=== PATIENT | male | born 1980 | race Caucasian/White ===

== ENCOUNTER 2017-02-12 14:15 | Inpatient (IN) | payer BC, OTHER ==
[~2017-02-12] VITALS: Ht 175.3 cm; Wt 61.9 kg
--- NOTE | ~2017-02-12 | CATHLAB ---
[facility] [address] [place] [address] INVASIVE PROCEDURE REPORT Name: MAGGIE BARRETO Room #: 206-P ADM IN M.R.#: [id number] Admission: 02/12/17 Attend Phys: Roger King Discharge: Date of : 80 Date of Service: 02/15/17 1231 Report #: [id number] THIS REPORT FOR: //name// APPROVED REPORT Patient Details Patient Status: In-Patient Room #: The patient is a 36 year-old male Event Personnel Pawan Carrillo Kelp Gatherer, Sydni Wilson, Fermín Canada RN, Ernesto Rojas RN RN, Matteo Bailey Scrub Procedures Performed Art Access - R femoral artery* Lauri Access - R femoral vein 24031 Initial Mod Sed Same Phys/QHP Gr5y [id number] 53530 Mod Sed Same Phys/QHP Ea [id number] Right and Left Heart Cath w/or w/o Coronarie [id number] RLHC Renal Bilateral Peripheral Angiography [id number] CVRENALBIL Hemostasis with Manual pressure Indication CHF Current Status: Yes , Cardiomyopathy Risk Factors Hypercholesterolemia, Hypertension, History of renal insufficiency, with long-standing hypertension. Procedure Narrative The patient was brought urgently to the Cardiac Catheterization Laboratory and was prepped and draped in a sterile manner. The Right Groin^ was infiltrated with 1% Lidocaine subcutaneous anesthesia. A Right Heart Catheterization was performed with a 6 Fr. [place]-Faiza catheter and pressure were recorded. Cardiac outputs were obtained by the Monica method. A PINNACLE 4FR Sheath #[id number] sheath was inserted into the RFA^. Coronary angiography was performed using coronary diagnostic catheters. The right coronary system was accessed and visualized with a JR 4 catheter. The left coronary system was accessed and visualized with a JL 4 catheter. The left ventricle was accessed and visualized with a JR 4 catheter. Left ventricular/Aortic Valve gradient assessed via catheter pullback. Hemostasis was obtained with manual pressure following sheath removal without any complications. The patient tolerated the procedure well and there were no complications associated with the procedure. There was no hematoma. Bilateral selective renal angiography performed using a 4 [facility] [place] [address] INVASIVE PROCEDURE REPORT Name: MAGGIE BARRETO Room #: 206-P [facility] IN ..#: [id number] Admission: 02/12/17 Attend Phys: Roger King Discharge: Date of : 80 Date of Service: 02/15/17 1231 Report #: [id number] David JR4 guide catheter. Indications include long-standing history of hypertension, renal insufficiency and cardiomyopathy. Selective angiography reveals no evidence for renal artery stenosis in either the right or left renal arteries. Intraoperative Conscious Sedation Sedation start time: 11:06 Case end Time: 11:42 Fentanyl 25.0 mcg Versed 1.0 mg Fluoro Time: 15.16 minutes Dose: DAP 5238.40 cGycm2 312 mGy Contrast Type and Amount: Visipaque 50 ml Coronary Angiography The patient's coronary anatomy is right dominant. Diagnostic Cath Left Main Patent vessel, no flow limiting lesions. LAD Patent vessel, mild plaquing in the proximal segment, less than 20%. Diagonal 1 Patent vessel, with no flow-limiting lesions. Circumflex Patent vessel, with no flow-limiting lesions. OM1 Patent vessel, with no flow-limiting lesions. OM2 Patent vessel, with no flow-limiting lesions. Right Coronary Dominant vessel, with no flow-limiting lesions. R PDA Patent vessel, with no flow-limiting lesions. RPLV Patent vessel, with no flow-limiting lesions. Left Ventriculography Left Ventriculography was not performed. Ejection Fraction was 15% based off patient's Echocardiogram. The LVEDP was measured, there is no gradient across the outflow tract. Hemodynamics The right atrial mean pressure is 15 mmHg. The right ventricular pressure is 51/13 mmHg. The pulmonary artery pressure is 52/31 mmHg with a mean of 40 mmHg. The aortic pressure is 139/111 mmHg with a mean of 124 mmHg. The left ventricular pressure is 140/23 mmHg with a mean of mmHg. The left ventricular end diastolic pressure is 35 mmHg. PaO2 saturation is 48.20 %. Arterial saturation is 95.70 %. The cardiac output using the Monica method is 2.51 L/min. The cardiac index using the Monica method is 1.39 L/min/m2. Conclusion [facility] [address] [place] [address] INVASIVE PROCEDURE REPORT Name: MAGGIE BARRETO Room #: 206-P ADM IN M.R.#: [id number] Admission: 02/12/17 Attend Phys: Roger King Discharge: Date of : 80 Date of Service: 02/15/17 1231 Report #: [id number] 1. Severe, nonischemic cardiomyopathy. 2. Mild plaquing in proximal LAD. 3. Right heart catheterization performed, chamber pressures and cardiac output measured. 4. No evidence for renal artery stenosis. 5. Medical therapy recommended. <ELECTRONICALLY SIGNED> By: Pawan Carrillo MD 02/15/171230 30 30 Pawan Carrillo MD /INF
--- NOTE | ~2017-02-12 | HC ---
[facility] [place] [address] CONSULTATION Name: MAGGIE BARRETO Room #: 206-P [facility] IN M.R.#: [id number] Admission: 02/12/17 Attend Phys: Roger Winkler Discharge: Date of : 80 Report #: [id number] THIS REPORT FOR: //name// CC: FAM unknown Roger Winkler DATE OF SERVICE: 02/13/2017 INDICATION: Shortness of air. HISTORY OF PRESENT ILLNESS: This is a 36-year-old gentleman with a longstanding history of hypertension, ADHD, presenting with shortness of breath for the past several weeks. The patient has a longstanding history of hypertension, on multiple medications. He sees his primary care physician every month for his Adderall prescription. About 3 weeks ago, he developed sinusitis and was treated with antibiotics. However, he still has fevers and then developed shortness of breath. He had progressive shortness of breath with exertion. He also developed orthopnea and palpitations in a supine position. There is no history of nausea, diarrhea or lightheadedness. He was admitted to [facility], the echo reportedly reveals EF in the 10% range. He was subsequently transferred to [facility] for further evaluation. ALLERGIES: Include furosemide. MEDICATIONS: At home include Adderall daily; clonazepam; clonidine half a tablet twice a day; Tribenzor which includes amlodipine 10 mg, hydrochlorothiazide 25 mg and Benicar 40 mg daily. SOCIAL HISTORY: Denies tobacco use, denies drug use. FAMILY HISTORY: Negative for premature CAD. REVIEW OF SYSTEMS: A full 10-point review of systems is performed, only the pertinent positives and negatives are described in the HPI. PHYSICAL EXAMINATION: VITAL SIGNS: Blood pressure is 140/100, heart rate is 90 beats per minute. GENERAL APPEARANCE: A well-developed, well-nourished male in no acute respiratory distress. HEAD AND EYES: Normocephalic. Sclerae anicteric. ENT: Oral mucosa moist. NECK: Supple. LUNGS: Diminished breath sounds at the bases. CARDIAC: Regular rate and rhythm; S1, S2 positive; 1/6 systolic murmur. ABDOMEN: Soft, nontender. EXTREMITIES: No cyanosis, no edema. [facility] [address] [place] [address] CONSULTATION Name: MAGGIE BARRETO Room #: 206- ADM IN M.R.#: [id number] Admission: 02/12/17 Attend Phys: Roger Winkler Discharge: Date of : 80 Report #: [id number] NEUROLOGIC: Alert and oriented times 3 ECG reveals sinus rhythm, nonspecific T-wave abnormality. LABORATORY VALUES: White count is 11.1, hemoglobin 14.6. Sodium is 139, creatinine is 1.6. ProBNP is 3436. IMPRESSION AND PLAN: 1. Cardiomyopathy, we will confirm with a repeat echo today. We will need to transition his blood pressure medications to carvedilol and an ANIL inhibitor. He is not in overt heart failure, we will hold the diuretic for now. He will also require an ischemic evaluation. 2. Hypertension, elevated. We will need to titrate his medications. 3. Attention-deficit hyperactivity disorder, continue with medications. 4. History of noncompliance, discussed importance of taking his medications. <ELECTRONICALLY SIGNED> By: Pawan Carrillo MD 02/14/17 0751 0811 0850 Pawan Carrillo MD /nt
--- NOTE | ~2017-02-12 | 2DMMODE ---
[facility] [address] [place] [address] 2 D/M-MODE ECHOCARDIOGRAM Name: MAGGIE BARRETO Room #: 206-P ADM IN M.R.#: [id number] Admission: 02/12/17 Attend Phys: Roger King Discharge: Date of : 80 Date of Service: 02/13/17 1246 Report #: [id number] THIS REPORT FOR: //name// APPROVED REPORT Study performed: 02/13/2017 11:06:39 EXAM: Comprehensive 2D, Doppler, and color-flow Echocardiogram Patient Location: Bedside Room #: 206 Status: routine BSA: 1.78 HR: 94 bpm BP: 149/109 mmHg Rhythm: NSR Other Information Study Quality: Good Indications Tachycardia Cardiomyopathy Hypertension/HDD CHF 2D Dimensions RVDd: 30.00 mm LVEF(%): 14.13 (>50%) IVSd: 12.84 (7-11mm) LVOT Diam: 20.16 (18-24mm) LVDd: 53.86 mm PWd: 12.72 (7-11mm) Ascending Ao: 27.86 (22-36mm) LVDs: 50.43 (25-40mm) Aortic Root: 30.02 mm IVC: 23.00 mm TAPSE: 1.40 (<1.7) Lockwood's LVEF: 14.13 % Volumes Left Atrial Volume (Systole) Single Plane 4CH: 71.71 mL Single Plane 2CH: 86.90 mL LA ESV Index: 55.00 mL/m2 Aortic Valve AoV Peak Tye.: 0.69 m/s AO Peak Gr.: 1.89 mmHg LVOT Max P.38 mmHg LVOT Max V: 0.59 m/s [facility] [employer] [place] [place] [address] 2 D/M-MODE ECHOCARDIOGRAM Name: ESTEVANMAGGIE ARREOLA Room #: 206-P [facility] IN .R.#: [id number] Admission: 02/12/17 Attend Phys: Roger King Discharge: Date of : 80 Date of Service: 02/13/17 1246 Report #: [id number] ESCOBAR Vmax: 2.72 cm2 Mitral Valve E/A Ratio: 2.5 MV Decel. Time: 119.90 ms MV E Max Tye.: 1.11 m/s MV A Tye.: 0.45 m/s MV PHT: 34.77 ms IVRT: 31.14 ms Pulmonary Valve PV Peak Tye.: 0.54 m/s PV Peak Gr.: 1.17 mmHg TX End Vmax: 1.71 m/s Pulmonary Vein P Vein S: 0.21 m/s P Vein A: 0.21 m/s P Vein D: 0.34 m/s P Vein A Dur.: 103.8 msec P Vein S/D Ratio: 0.62 Tricuspid Valve TR Peak Tye.: 3.25 m/s RAP Estimate: 15.00 mmHg TR Peak Gr.: 42.27 mmHg PA Pressure: 57.00 mmHg Left Ventricle The left ventricle is normal size. Mild concentric left ventricular hypertrophy. Left ventricular systolic function is severely decreased. LVEF is 10-15%. Grade III - reversible restrictive diastolic dysfunction. Right Ventricle The right ventricle is normal size. The right ventricular systolic function is normal. Atria Left atrium is dilated. Right atrium is dilated. Aortic Valve The aortic valve is normal in structure. No aortic regurgitation is present. There is no aortic valvular stenosis. Mitral Valve The mitral valve is normal in structure. Moderate mitral regurgitation. No evidence of mitral valve stenosis. Tricuspid Valve [address] [address] 2 D/M-MODE ECHOCARDIOGRAM Name: MAGGIE BARRETO Room #: 206-P [facility] IN M.R.#: [id number] Admission: 02/12/17 Attend Phys: Roger King Discharge: Date of : 80 Date of Service: 02/13/17 1246 Report #: [id number] The tricuspid valve is normal in structure. Mild tricuspid regurgitation. Estimated PAP 55mmHg. Pulmonic Valve The pulmonary valve is normal in structure. Mild pulmonic regurgitation. Great Vessels The aortic root is normal in size. IVC is dilated and collapses <50% with inspiration. Pericardium Trace pericardial effusion. <Conclusion> Left ventricular systolic function is severely decreased. LVEF is 10-15%. Severe diastolic dysfunction Both atria are dilated. The aortic valve is normal in structure. No aortic valvular stenosis or insufficiency. The mitral valve is normal in structure. Moderate mitral regurgitation. Mild tricuspid regurgitation. Pulmonary artery pressure of 55mmHg Trace pericardial effusion. <ELECTRONICALLY SIGNED> By: Jalen Reyes MD, FACC 02/13/17 1246 1246 1246 Jalen Reyes MD, FACC /INF
--- NOTE | ~2017-02-12 | EKG ---
[address] [address] ELECTROCARDIOGRAM REPORT Name: MAGGIE BARRETO Room #: 206-P ADM IN M.R.#: [id number] Admission: 02/12/17 Attend Phys: Roger Winkler Discharge: Date of : 80 Report #: [id number] THIS REPORT FOR: //name// [facility] Test Date: 2017-02-13 Test Time: 09:08:38 Pat Name: MAGGIE BARRETO Department: Room: 206 P Gender: M Computer Sciences Professor: El SUNG : 1980 Requested By: Pawan Carrillo Order Number: [id number] MD: Eliceo Hampton Measurements Intervals [place] Rate: 93 P: 71 CA: 148 QRS: 100 QRSD: 94 T: -44 QT: 397 QTc: 494 Interpretive Statements Sinus rhythm Probable left atrial enlargement Probable anterior infarct, old Borderline T abnormalities, inferior leads No previous ECG available for comparison Electronically Signed On 02-13-2017 20:09:54 [employer] INS[employer]ANCE OFFICER by Eliceo Hampton [email or web address] <ELECTRONICALLY SIGNED> By: Eliceo Hampton MD 02/13/172008 7 7 Eliceo Hampton MD /RENEA
[2017-02-12 15:35] VITALS: BP 149/109
[2017-02-12] MEDS ORDERED: ADDERALL 15 MG15 MG PO (17:56)
[2017-02-12] MEDS ORDERED: CLONAZEPAM 0.50.5 M1 PO (17:58)
[2017-02-12] MEDS ORDERED: CLONIDINE HCL0.3 M3 PO (17:59)
[2017-02-12] MEDS ORDERED: HYDROCHLOROTH12.5 M1 PO (18:00)
[2017-02-12] MEDS ORDERED: TRIBENZOR 40-11 EACH (18:01)
[2017-02-12 19:23] LABS: HEMATOCRIT 43.3 % (42.0-52.0); HEMOGLOBIN 14.6 gm/dL (14.0-18.0); MCH 28.1 pg (26.0-34.0); MCHC 33.7 g/dL (28.0-37.0); MCV 83.4 fL (80.0-100.0); RBC 5.19 mil/uL (4.50-6.00); RDW 14.1 % (10.5-14.5); WBC 11.1 thou/uL (4.0-11.0)
[2017-02-12 19:30] LABS: CALCIUM 8.9 mg/dL (8.5-10.1); CREATININE 1.5 mg/dL (0.7-1.3); POTASSIUM 3.7 mmol/L (3.5-5.1)
[2017-02-12 19:54] VITALS: BP 143/114
[2017-02-12 23:14] VITALS: BP 133/99
[2017-02-13 03:31] VITALS: BP 137/99
[2017-02-13 04:14] LABS: CALCIUM 9.1 mg/dL (8.5-10.1); CREATININE 1.6 mg/dL (0.7-1.3)
[2017-02-13 07:30] VITALS: BP 149/109
[2017-02-13 11:55] VITALS: BP 147/106
[2017-02-13 15:35] VITALS: BP 140/102
[2017-02-13 19:19] VITALS: BP 126/97
[2017-02-14 00:10] VITALS: BP 121/86
[2017-02-14 03:19] LABS: CALCIUM 8.7 mg/dL (8.5-10.1); CREATININE 1.8 mg/dL (0.7-1.3); POTASSIUM 3.6 mmol/L (3.5-5.1)
[2017-02-14 04:00] VITALS: BP 131/93
[2017-02-14 07:25] VITALS: BP 129/94
[2017-02-14 11:14] LABS: URINE BLOOD NEGATIVE (Negative); URINE GLUCOSE-RANDOM* NEGATIVE (Negative); URINE KETONES TRACE (Negative); URINE NITRITE NEGATIVE (Negative); URINE PROTEIN (DIPSTICK) NEGATIVE (Negative); URINE SPECIFIC GRAVITY 1.015 (1.003-1.035)
[2017-02-14 11:17] LABS: URINE COLOR AMBER
[2017-02-14 11:18] LABS: ICTOTEST (BILI CONFIRMATORY) Negative (Negative); URINE BILIRUBIN NEGATIVE (Negative)
[2017-02-14 11:19] LABS: URINE CREATININE-RANDOM* 223.9 mg/dL; URINE PROTEIN-RANDOM* 22.8 mg/dL (<11.9)
[2017-02-14 11:22] VITALS: BP 141/103
[2017-02-14 14:58] VITALS: BP 124/89
[2017-02-14 19:05] VITALS: BP 120/84
[2017-02-15 03:37] VITALS: BP 125/93
[2017-02-15 04:01] LABS: CALCIUM 8.6 mg/dL (8.5-10.1); CREATININE 1.5 mg/dL (0.7-1.3); PHOSPHORUS 4.7 mg/dL (2.5-4.9); POTASSIUM 3.2 mmol/L (3.5-5.1)
[2017-02-15 07:52] VITALS: BP 134/95
[2017-02-15 11:37] LABS: ABG SAMPLE TYPE ARTERIAL; ABG SAMPLE TYPE VENOUS; BE(vivo) 2.2 mmol/L (-2 to +3); BE(vivo) 3.6 mmol/L (-2 to +3); HCO3 22.9 mmol/L (22.0-26.0); HCO3 28.8 mmol/L (22.0-26.0); LACTATE 1.52 mmol/L (0.5-2.0); LACTATE 1.84 mmol/L (0.5-2.0); O2(CT) 21.4 mL/dL (15.0-23.0); O2Hb 95.7 % (92.0-98.0); PCO2 26.3 mmHg (35.0-45.0); PCO2 VENOUS 45.2 mmHg (41.0-51.0); PO2 81.8 mmHg (80.0-100.0); PO2 VENOUS 25.9 mmHg (35.0-45.0); pH 7.557 (7.360-7.450); sO2 97.4 % (92.0-98.0); sO2 VENOUS 48.4 % (65.0-85.0); tCO2 23.7 mmol/L (24.0-30.0); tCO2 30.2 mmol/L (24.0-30.0)
[2017-02-15 11:40] LABS: STICK SITE LINE
[2017-02-15 11:41] LABS: FIO2 21 %; O2Hb VENOUS 48.2 (65.0-85.0); STICK SITE LINE
[2017-02-15 12:39] VITALS: BP 143/109
[2017-02-15 15:09] VITALS: BP 139/103
[2017-02-15 19:35] VITALS: BP 133/97
[2017-02-15 23:29] VITALS: BP 123/89
[2017-02-16 04:05] LABS: CALCIUM 8.8 mg/dL (8.5-10.1); CREATININE 1.4 mg/dL (0.7-1.3); PHOSPHORUS 5.3 mg/dL (2.5-4.9); POTASSIUM 3.5 mmol/L (3.5-5.1)
[2017-02-16 04:18] VITALS: BP 118/88
[2017-02-16 07:29] VITALS: BP 129/100
[2017-02-16 11:31] VITALS: BP 127/94
[2017-02-16 15:22] VITALS: BP 114/83
[2017-02-16 19:45] VITALS: BP 124/85
[2017-02-17 04:12] VITALS: BP 122/86
[2017-02-17 05:09] LABS: ALBUMIN 3.1 g/dL (3.4-5.0); CALCIUM 8.6 mg/dL (8.5-10.1); CREATININE 1.3 mg/dL (0.7-1.3); PHOSPHORUS 4.1 mg/dL (2.5-4.9); POTASSIUM 3.3 mmol/L (3.5-5.1)
[2017-02-17 08:02] VITALS: BP 128/92
[2017-02-17] MEDS ORDERED: CARVEDILOL12.5 MG PO (08:35)
[2017-02-17] MEDS ORDERED: ASPIR 8181 MG PO (08:35)
[2017-02-17] MEDS ORDERED: HOME MEDICATION PO (08:36)
[2017-02-17] MEDS ORDERED: DEMADEX20 MG PO (08:36)
[2017-02-17 11:05] VITALS: BP 128/92
== END 2017-02-17 11:51 | disposition home or self-care (01) | DRG 286 ==
LOC: 2N 14:15
PROVIDERS: Hospitalist; Internal Medicine Cardiovascular Disease
DX: I13.0 Hypertensive heart and chronic kidney disease with heart failure and stage 1 through stage 4 chronic kidney disease, or unspecified chronic kidney disease (principal); I50.41 Acute combined systolic (congestive) and diastolic (congestive) heart failure; N17.9 Acute kidney failure, unspecified; I42.9 Cardiomyopathy, unspecified; F41.9 Anxiety disorder, unspecified; F90.9 Attention-deficit hyperactivity disorder, unspecified type; I34.0 Nonrheumatic mitral (valve) insufficiency; N18.9 Chronic kidney disease, unspecified; Z88.8 Allergy status to other drugs, medicaments and biological substances; Z79.899 Other long term (current) drug therapy; Z91.19 Patient's noncompliance with other medical treatment and regimen
CPT/HCPCS: 10797

== ENCOUNTER → 2017-08-22 | Outpatient (CLI) | payer BC, OTHER ==
[~2017-08-22] MED LIST: ADDERALL 15 MG15 MG PO; ASPIR 8181 MG PO; CARVEDILOL12.5 MG PO; CLONAZEPAM 0.50.5 M1 PO; CLONIDINE HCL0.3 M3 PO; DEMADEX20 MG PO; HOME MEDICATION PO; HYDROCHLOROTH12.5 M1 PO; TRIBENZOR 40-11 EACH
--- NOTE | ~2017-08-22 | 2DMMODE ---
[facility] [address] [place] [address] 2 D/M-MODE ECHOCARDIOGRAM Name: MAGGIE BARRETO Room #: REG CL Barbara#: [id number] Admission: 08/22/17 Attend Phys: Eliceo Hampton Discharge: Date of : 80 Date of Service: 08/22/17 1537 Report #: [id number] THIS REPORT FOR: //name// ADDENDUM APPROVED REPORT Study performed: 08/22/2017 12:50:57 EXAM: Comprehensive 2D, Doppler, and color-flow Echocardiogram Patient Location: Out-Patient Room #: Echo lab 2 Status: routine BSA: 1.75 HR: 77 bpm BP: 152/99 mmHg Other Information Study Quality: Adequate Indications Cardiomyopathy 2D Dimensions RVDd: 21.80 mm LVEF(%): 51.75 (>50%) IVSd: 8.14 (7-11mm) LVOT Diam: 20.33 (18-24mm) LVDd: 44.77 mm PWd: 8.68 (7-11mm) Ascending Ao: 27.56 (22-36mm) LVDs: 32.98 (25-40mm) Aortic Root: 24.72 mm IVC: 16.00 mm Lockwood's LVEF: 51.75 % Volumes Left Atrial Volume (Systole) Single Plane 4CH: 14.53 mL Single Plane 2CH: 27.91 mL LA ESV Index: 16.00 mL/m2 Aortic Valve AoV Peak Tye.: 1.22 m/s AO Peak Gr.: 5.98 mmHg LVOT Max P.47 mmHg LVOT Max V: 0.79 m/s ESCOBAR Vmax: 2.09 cm2 Mitral Valve E/A Ratio: 0.8 MV Decel. Time: 161.68 ms MV E Max Tye.: 0.81 m/s [facility] [place] [address] 2 D/M-MODE ECHOCARDIOGRAM Name: MAGGIE BARRETO Room #: DAYDAY Jordan#: [id number] Admission: 08/22/17 Attend Phys: Eliceo Hampton Discharge: Date of : 80 Date of Service: 08/22/17 1537 Report #: [id number] MV A Tye.: 0.98 m/s MV PHT: 46.89 ms IVRT: 110.73 ms Pulmonary Valve PV Peak Tye.: 0.83 m/s PV Peak Gr.: 2.73 mmHg Pulmonary Vein P Vein S: 0.48 m/s P Vein A: 0.26 m/s P Vein D: 0.52 m/s P Vein A Dur.: 101.5 msec P Vein S/D Ratio: 0.92 Tricuspid Valve TR Peak Tye.: 2.95 m/s TR Peak Gr.: 34.77 mmHg PA Pressure: 30.00 mmHg Left Ventricle The left ventricle is normal size. There is normal left ventricular wall thickness. Left ventricular ejection fraction is moderately decreased. LVEF is 35%. Grade I - abnormal relaxation pattern. Right Ventricle The right ventricle is normal size. The right ventricular systolic function is normal. Atria The left atrium size is normal. The right atrium size is normal. Aortic Valve The aortic valve is normal in structure. No aortic regurgitation is present. There is no aortic valvular stenosis. Mitral Valve The mitral valve is normal in structure. Trace mitral regurgitation. No evidence of mitral valve stenosis. Tricuspid Valve The tricuspid valve is normal in structure. There is trace tricuspid regurgitation. Estimated PAP 30 mmHg. There is no pulmonary hypertension. Pulmonic Valve The pulmonary valve is normal in structure. There is no pulmonic valvular regurgitation. [facility] [address] [place] [address] 2 D/M-MODE ECHOCARDIOGRAM Name: MAGGIE BARRETO Room #: REG CL Nikki#: [id number] Admission: 08/22/17 Attend Phys: [facility] Discharge: Date of : 80 Date of Service: 08/22/17 1537 Report #: [id number] Great Vessels The aortic root is normal in size. IVC is normal in size and collapses >50% with inspiration. Pericardium There is no pericardial effusion. <Conclusion> The left ventricle is normal size. LVEF is 35% to 45%. The aortic valve is normal in structure. The mitral valve is normal in structure. Trace mitral regurgitation. The tricuspid valve is normal in structure. There is trace tricuspid regurgitation. Estimated PAP 30 mmHg. There is no pulmonary hypertension. The pulmonary valve is normal in structure. There is no pericardial effusion. <ELECTRONICALLY SIGNED> By: Familia Marcial MD 08/22/17 1537 1537 1537 Familia Marcial MD /INF
== END ==
LOC: CV 12:24
DX: I42.9 Cardiomyopathy, unspecified (principal)

== ENCOUNTER → 2019-04-09 | Outpatient (CLI) | payer BC | LOC: SJCVC 12:52 | DX: I42.8 Other cardiomyopathies (principal); I10 Essential (primary) hypertension; E78.00 Pure hypercholesterolemia, unspecified; I25.10 Atherosclerotic heart disease of native coronary artery without angina pectoris ==